=== PATIENT | female | born 1985 | race Caucasian/White ===

== ENCOUNTER 2021-09-20 10:00 | Emergency (ER) | payer BC, SELFPAY ==
--- NOTE | 2021-09-20 10:24 | ED.BACK ---
HPI - Back Pain/Injury General Chief Complaint: Back Pain/Injury Stated Complaint: Back pain Time Seen by Provider: 09/20/21 10:22 Source: patient Mode of arrival: ambulatory Limitations: no limitations History of Present Illness HPI Narrative: Ms. Gonzalez is a 36-year-old female patient presenting to the clinic today with complaints of right upper back pain x2 to 3 weeks. She reports no known injury however she noticed this when she was going down to [place] and was digging a hole to [facility] in the sand. She reports that the pain is worse with movement, coughing, sneezing to the right rhomboid area Related Data Allergies Allergy/AdvReac Type Severity Reaction Status Date / Time No Known Allergies Allergy Mild Unverified 11/13/10 11:30 Review of Systems Review of Systems: Pertinent positives per HPI. Patient denies any fever, chills, rash, headache, visual changes, dizziness, cough, runny nose, sore throat, shortness of breath, chest pain, palpitations, nausea, vomiting, diarrhea, constipation, abdominal pain, or any urinary issues. PMFSH Comments At the time of my signature, I reviewed and agree with the nursing past medical, surgical, social, and family history. There is no relevant family history pertinent to the patient complaint. Exam Narrative: General: Well-developed, well nourished, in no apparent distress Head: Normocephalic, atraumatic. Cardio: Regular rate and rhythm, s1 and s2 normal, no murmur appreciated. Resp: Clear to auscultation bilaterally, no rhonchi, rales, wheezing or rubs. Musculoskeletal: No deformity, mild tender to palpation over the right rhomboid musculature, mild pain with raising right arm above head, grossly normal range of motion, muscle strength strong and equal, peripheral pulse strong, no edema, no cyanosis, normal gait and station Course Course Emergency Course: Portions of this record may have been created with voice recognition software. Level of Care: Express Care Visit Vital Signs Vital signs: Vital Signs Temperature 36.6 C 09/20/21 10:25 Pulse Rate 76 09/20/21 10:25 Respiratory Rate 16 09/20/21 10:25 Blood Pressure 116/72 09/20/21 10:25 Pulse Oximetry 100 09/20/21 10:25 Oxygen Delivery Room Air 09/20/21 10:25 Temperature 36.6 C 09/20/21 10:25 Pulse Rate 76 09/20/21 10:25 Respiratory Rate 16 09/20/21 10:25 Blood Pressure 116/72 09/20/21 10:25 Pulse Oximetry 100 09/20/21 10:25 Oxygen Delivery Room Air 09/20/21 10:25 Vital signs reviewed MDM - Back Pain/Injury MDM Narrative Medical decision making narrative: At the time of visit patient is resting comfortably on the exam table. I suspect the patient has a rhomboid muscle strain. I will give her a prescription for some prednisone and Flexeril for this and have her follow-up with her PCP in 3 to 5 days if symptoms persist. Supportive measures were discussed with the patient she voiced understanding of discharge instructions and agrees to treatment plan. Differential Diagnosis Differential diagnosis: Likely thoracic back pain and other (Pleurisy, costochondritis, scapular pain, rhomboid muscle strain) Discharge Plan Discharge Clinical Impression: Strain of right rhomboid muscle Patient Disposition: Home, Self-Care Condition: Stable Instructions: Antibiotic Form, Muscle Strain (ED) Additional Instructions: Take prednisone as prescribed Take Flexeril as prescribed-sedation precautions reviewed May take Tylenol additionally for pain if needed May apply Aspercreme, blue emu, or lidocaine to the affected area Consider massage over this area Follow-up with your PCP in 3 to 5 days if symptoms persist or sooner if they worsen Prescriptions: New prednisone 20 mg tablet 40 mg PO DAILY 5 Days Qty: 10 0RF cyclobenzaprine 10 mg tablet 10 mg PO Q8H PRN (Reason: muscle spasm) 7 Days Qty: 21 0RF Follow-up/Referrals: UNKNOWN,DOCTOR [Primary Care P
[2021-09-20 10:25] VITALS: BP 116/72; PULSE 76; RESP 16; TEMP 36.6; O2SAT 100
== END 2021-09-20 10:48 | disposition home or self-care (01) ==
PROVIDERS: Emergency Provider Nurse Practitioner Family
DX: S29.012A Strain of muscle and tendon of back wall of thorax, initial encounter (principal); X50.3XXA Overexertion from repetitive movements, initial encounter
CPT/HCPCS: 99213; G0463